=== PATIENT | female | born 1935 | race Caucasian/White ===

== ENCOUNTER 2018-08-08 10:34 | Inpatient (IN) | payer MEDICARE, OTHER ==
[~2018-08-08] VITALS: Ht 152.4 cm; Wt 49.9 kg
[2018-08-08] MEDS ORDERED: IV NORMAL SALINE 500 ML BAG IV ONE (10:45)
[2018-08-08] MEDS ORDERED: CHOL10005 PO (11:00)
[2018-08-08] MEDS ORDERED: AMLO5TAB9 PO (11:00)
[2018-08-08] MEDS ORDERED: ASPI81TA31 PO (11:00)
[2018-08-08] MEDS ORDERED: CALC-903 PO (11:00)
[2018-08-08] MEDS ORDERED: MULT1TAB73 PO (11:00)
[2018-08-08] MEDS ORDERED: TRIM100T PO (11:00)
[2018-08-08] MEDS ORDERED: RALO60TA14 PO (11:00)
[2018-08-08] MEDS ORDERED: MECL-102 PO (11:00)
[2018-08-08] MEDS ORDERED: PANT20TA2 PO (11:00)
[2018-08-08] MEDS ORDERED: POLY17PO4 PO (11:00)
[2018-08-08] MEDS ORDERED: CYAN10009 PO (11:00)
[2018-08-08 11:04] LABS: BASOPHILS # (AUTO) 0.1 K/uL (0.0-8.0); BASOPHILS % (AUTO) 0.9 % (0.0-2.0); EOSINOPHILS % (AUTO) 0.1 % (0.0-7.0); HEMATOCRIT 32.5 % (31.2-41.9); HEMOGLOBIN 10.6 g/dL (10.9-14.3); LYMPHOCYTES # (AUTO) 1.3 K/uL (20.0-40.0); LYMPHOCYTES % (AUTO) 13.3 % (20.5-51.5); MEAN CORPUSCULAR HEMOGLOBIN 29.4 uug (24.7-32.8); MEAN CORPUSCULAR HGB CONC 33 g/dL (32.3-35.6); MEAN CORPUSCULAR VOLUME 89.9 fL (75.5-95.3); MONOCYTES # (AUTO) 0.5 K/uL (2.0-10.0); MONOCYTES % (AUTO) 5.2 % (0.0-11.0); NEUTROPHILS # (AUTO) 7.6 K/uL (1.8-8.9); NEUTROPHILS % (AUTO) 80.5 % (38.5-71.5); PLATELET COUNT (AUTO) 211 K/uL (179-408); RED BLOOD CELL COUNT(AUTO) 3.62 MIL/uL (3.63-4.92); WHITE BLOOD COUNT (AUTO) 9.5 K/uL (3.8-11.8)
[2018-08-08 11:12] LABS: CARBON DIOXIDE 25 mmol/L (21-32); CHLORIDE 103 mmol/L (98-107); CREATININE 0.9 mg/dL (0.6-1.3); GLUCOSE 228 mg/dL (74-106); POTASSIUM 3.5 mmol/L (3.5-5.1); UREA NITROGEN, BLOOD 13 mg/dL (7-18)
[2018-08-08] MEDS ORDERED: FERR325T28 PO (11:17)
[2018-08-08 11:28] LABS: ALANINE AMINOTRANSFERASE 21 U/L (14-59); ALKALINE PHOSPHATASE 43 U/L (50-136); ASPARTATE AMINOTRANSFERASE 19 U/L (15-37); BILIRUBIN,DIRECT 0.1 mg/dL (0.0-0.2); BILIRUBIN,TOTAL 0.3 mg/dL (0.2-1.0); TOTAL PROTEIN, SERUM 6.9 g/dL (6.4-8.2)
[2018-08-08 11:43] LABS: *BILIRUBIN,URIN NEGATIVE (NEGATIVE); *BLOOD, URINE NEGATIVE (NEGATIVE); *CLARITY,URINE CLEAR (CLEAR); *COLOR,URINE LIGHT YELLOW (YELLOW); *KETONES,URINE NEGATIVE (NEGATIVE); *UROBILINOGEN,URINE 0.2 E.U./dl (NORMAL); LEUKOCYTE ESTERASE ,URINE NEGATIVE (NEGATIVE); NITRITE, URINE NEGATIVE (NEGATIVE); PH,URINE 6.5 (5.0-8.0); UGLUCOSE 1+ (NEGATIVE)
[2018-08-08 11:49] LABS: BACTERIA,URINE NONE SEEN /HPF (NONE SEEN); RBC,URINE 0-3 /HPF (0-3); SQUAMOUS EPITHELIAL CELL,UR NONE SEEN /HPF (NONE SEEN); WBC,URINE 0-3 /HPF (0-3)
[2018-08-08] MEDS ORDERED: ZOLPIDEM 5 MG TABLET PO PRN (14:00)
[2018-08-08] MEDS ORDERED: HYDROCODONE/APAP 5-325MG TABLET PO PRN (14:00)
[2018-08-08] MEDS ORDERED: Z GUARD REMEDY PASTE 57 GM TUBE TOP PRN (14:00)
[2018-08-08] MEDS ORDERED: ONDANSETRON 4 MG/2 ML VIAL IV PRN (14:00)
[2018-08-08] MEDS ORDERED: MAGNESIUM HYDROXIDE 30 ML LIQUID UDC PO PRN (14:00)
[2018-08-08] MEDS ORDERED: MECLIZINE HCL 25 MG TABLET PO PRN (14:00)
[2018-08-08] MEDS ORDERED: ACETAMINOPHEN 325 MG TABLET PO PRN (14:00)
[2018-08-08] MEDS: IV NS 1000 ML 1,000 ML IV PRN (16:26)
[2018-08-08 16:35] VITALS: BP 140/48
[2018-08-08 20:00] VITALS: BP 150/53
[2018-08-08] MEDS: METOPROLOL TARTRATE 25 MG TABLET PO SCH ×2 (20:38→21:00)
[2018-08-09] VITALS: BP 134/48
[2018-08-09 04:00] VITALS: BP 149/59
[2018-08-09] MEDS: IV NS 1000 ML 1,000 ML IV PRN (06:53)
[2018-08-09 07:25] LABS: BASOPHILS # (AUTO) 0.1 K/uL (0.0-8.0); BASOPHILS % (AUTO) 1.2 % (0.0-2.0); EOSINOPHILS # (AUTO) 0.1 K/uL (0.0-0.7); EOSINOPHILS % (AUTO) 0.8 % (0.0-7.0); HEMATOCRIT 34.1 % (31.2-41.9); LYMPHOCYTES # (AUTO) 2.1 K/uL (20.0-40.0); LYMPHOCYTES % (AUTO) 33.4 % (20.5-51.5); MEAN CORPUSCULAR HEMOGLOBIN 29.3 uug (24.7-32.8); MEAN CORPUSCULAR HGB CONC 32 g/dL (32.3-35.6); MEAN CORPUSCULAR VOLUME 90.7 fL (75.5-95.3); MONOCYTES # (AUTO) 0.7 K/uL (2.0-10.0); MONOCYTES % (AUTO) 11.1 % (0.0-11.0); NEUTROPHILS # (AUTO) 3.4 K/uL (1.8-8.9); NEUTROPHILS % (AUTO) 53.5 % (38.5-71.5); PLATELET COUNT (AUTO) 229 K/uL (179-408); RED BLOOD CELL COUNT(AUTO) 3.76 MIL/uL (3.63-4.92); WHITE BLOOD COUNT (AUTO) 6.4 K/uL (3.8-11.8)
[2018-08-09 07:43] LABS: CARBON DIOXIDE 25 mmol/L (21-32); CHLORIDE 108 mmol/L (98-107); CHOLESTEROL 111 mg/dL (<200); CREATININE 0.7 mg/dL (0.6-1.3); GLUCOSE 93 mg/dL (74-106); HDL CHOLESTEROL 63 mg/dL (40-60); MAGNESIUM 2.2 mg/dL (1.8-2.4); PHOSPHOROUS 3.2 mg/dL (2.5-4.9); TRIGLYCERIDES 56 MG/DL (30-150); UREA NITROGEN, BLOOD 8 mg/dL (7-18)
[2018-08-09 07:45] LABS: THYROID STIMULATING HORMONE 2.368 mIU/mL (0.358-3.740)
[2018-08-09] MEDS: METOPROLOL TARTRATE 25 MG TABLET PO SCH (08:18)
[2018-08-09] MEDS ORDERED: AMLODIPINE 5 MG TABLET PO SCH (09:00)
[2018-08-09] MEDS ORDERED: CHOLECALCIFEROL 1,000 UNIT TABLET PO SCH (09:00)
[2018-08-09] MEDS ORDERED: MIRALAX 17 GM POWD.PACK PO SCH (09:00)
[2018-08-09] MEDS ORDERED: CALCIUM CARBONATE 600 MG TABLET PO SCH (09:00)
[2018-08-09] MEDS ORDERED: MULTIVITAMINS,THERAPEUTIC TABLET PO SCH (09:00)
[2018-08-09] MEDS ORDERED: ASPIRIN 81 MG TAB.CHEW PO SCH (09:00)
[2018-08-09] MEDS ORDERED: FERROUS SULFATE 325 MG TABEC PO SCH (09:00)
[2018-08-09] MEDS ORDERED: CYANOCOBALAMIN 1,000 MCG TABLET PO SCH (09:00)
[2018-08-09 11:03] VITALS: BP 130/45
[2018-08-10] MEDS ORDERED: METOPROLOL SUCCINATE XL 25 MG TAB.SR.24H PO SCH (09:00)
== END 2018-08-09 12:23 | disposition home or self-care (01) | DRG 640 ==
LOC: ER 10:34 → TELE3 13:06 → MEDSURG3 08-09 10:35
DX: E86.0 Dehydration (principal); K57.91 Diverticulosis of intestine, part unspecified, without perforation or abscess with bleeding; R55 Syncope and collapse; S00.03XA Contusion of scalp, initial encounter; W18.30XA Fall on same level, unspecified, initial encounter; Y92.010 Kitchen of single-family (private) house as the place of occurrence of the external cause; K21.9 Gastro-esophageal reflux disease without esophagitis; Z96.611 Presence of right artificial shoulder joint; Z90.711 Acquired absence of uterus with remaining cervical stump; Z85.3 Personal history of malignant neoplasm of breast; Z79.899 Other long term (current) drug therapy; I67.2 Cerebral atherosclerosis; M85.80 Other specified disorders of bone density and structure, unspecified site; D64.9 Anemia, unspecified; I10 Essential (primary) hypertension
CPT/HCPCS: 36415; 70030-TC; 70450; 71045; 72125; 83735; 84100; 84443; 85025; 85730; 87086; 93005; 93307; 93880; A4663; G0378; J7030

== ENCOUNTER 2021-02-02 14:00 | Emergency (ER) | payer MEDICARE, OTHER ==
[~2021-02-02] VITALS: Ht 152.4 cm; Wt 49.9 kg
[~2021-02-02 14:00] MED LIST: AMLO-212 PO; ASPI81TA31 PO; CALC-903 PO; CHOL10005 PO; CYAN-51 PO; FERR325T28 PO; MECL-159 PO; MULT-594 PO; PANT20TA2 PO; POLY17PO4 PO; RALO60TA14 PO; TRIM100T PO
[2021-02-02] MEDS ORDERED: LIDOCAINE 1%-EPI 1:100,000 20 ML VIAL IJ ONE (15:15)
[2021-02-02] MEDS ORDERED: KETOROLAC TROMETHAMINE 60 MG INJ IM ONE (15:18)
[2021-02-02] MEDS ORDERED: TDAP DIPH,PERTUSS,TET VAC/PF 0.5 ML DISP.SYRIN IM ONE ×2 (15:30→15:54)
--- NOTE | 2021-02-02 16:28 | NUR ---
Patient discharged to home in stable condition. Written and verbal after care instructions given. Patient verbalizes understanding of instructions. Stressed follow up or return to ER for worsening s/s.pt walks in steady gait. pt deneis dizziness. pt accompanied by grand daughter.
== END 2021-02-02 16:30 | disposition home or self-care (01) ==
LOC: ER 14:00
DX: S01.81XA Laceration without foreign body of other part of head, initial encounter (principal); S20.319A Abrasion of unspecified front wall of thorax, initial encounter; W01.198A Fall on same level from slipping, tripping and stumbling with subsequent striking against other object, initial encounter; Y93.9 Activity, unspecified; Y92.017 Garden or yard in single-family (private) house as the place of occurrence of the external cause; Z85.3 Personal history of malignant neoplasm of breast; Z79.82 Long term (current) use of aspirin; Z79.899 Other long term (current) drug therapy
CPT/HCPCS: 90715; A4217; A4663; J1885; J3490

== ENCOUNTER 2024-10-15 13:21 | Emergency (ER) | payer MEDICARE, OTHER ==
[~2024-10-15] VITALS: Ht 152.4 cm; Wt 49.9 kg
[2024-10-15 15:09] VITALS: BP 164/61; O2SAT 98
== END 2024-10-15 15:09 | disposition home or self-care (01) ==
LOC: ER 13:21
DX: S40.011A Contusion of right shoulder, initial encounter (principal); Z79.82 Long term (current) use of aspirin; Z88.7 Allergy status to serum and vaccine; Z96.611 Presence of right artificial shoulder joint; Z86.69 Personal history of other diseases of the nervous system and sense organs; Z86.79 Personal history of other diseases of the circulatory system; Z87.19 Personal history of other diseases of the digestive system; Z85.3 Personal history of malignant neoplasm of breast; W18.39XA Other fall on same level, initial encounter; Y93.89 Activity, other specified; Y92.89 Other specified places as the place of occurrence of the external cause; Y99.8 Other external cause status
CPT/HCPCS: 73020; A4606; A4663